=== PATIENT | female | born 1955 | race Caucasian/White ===

== ENCOUNTER 2017-05-05 10:10 | Emergency (ER) | payer BC, OTHER ==
[2017-05-05 10:16] VITALS: BP 147/89; PULSE 97; TEMP 98.5; BMI 27.3
[2017-05-05] MEDS ORDERED: ONDANSETRON *ODT* 4 MG TABLET SL ONE (10:48)
[2017-05-05] MEDS ORDERED: MECLIZINE HCL 25 MG TABLET (FP) PO ONE (10:48)
--- NOTE | 2017-05-05 10:49 | PDOC ---
History of Present Illness - General Chief Complaint: Lightheaded Stated Complaint: DIZZINESS Time Seen by Provider: 05/05/17 10:47 - History of Present Illness Initial Comments: 05/05/17 12:40 Chief complaint: Vertigo History of present illness: Patient awoke this morning with right-sided nasal congestion and mild vertigo. She has had recurrent vertigo in the past for which she takes Ativan and/or Valium. Review of systems: Admits a spinning sensation with movement of the head or change of position, that resolves almost immediately. Admits mild nausea without vomiting. No other visual or focal neurologic symptoms. Her gait is unaffected. Denies chest pain, shortness of breath, abdominal pain, vomiting or diarrhea, urinary tract symptoms, vaginal bleeding or discharge. Past medical history: No high blood pressure or diabetes. Occasional tinnitus. Otherwise healthy Social/family history reviewed and noncontributory, except that she smokes 10 cigarettes per day. Physical exam: Alert and oriented well-developed well-nourished no acute distress cooperative Afebrile, vital signs stable PERRLA 4 mm, fundi benign with sharp disc margins and good central venous pulsations, ENT: There is nasal congestion on the right, no discharge, and the ears are clear. Neck supple without bruit mass or nodes Chest clear CV regular without murmur rub or gallop Abdomen benign Neurological C2 to 12 intact. Strength full and symmetric. No focal sensory or motor deficits. Cerebellar intact. Gait unimpaired Impression: URI, labyrinthitis, probably viral Plan: Symptomatically treatment and follow-up if no improvement. Past History - Past Medical History Allergies/Adverse Reactions: Allergies Allergy/AdvReac Type Severity Reaction Status Date / Time No Known Allergies Allergy Verified 05/05/17 10:11 Home Medications: Ambulatory Orders Diazepam [Valium] 2 mg PO DAILY #5 tablet MDD 1 05/05/17 Levothyroxine Sodium [Synthroid] 150 mcg PO DAILY 05/05/17 Meclizine HCl 25 - 50 mg PO TID PRN #20 tablet 05/05/17 Ondansetron [Zofran Odt -] 4 - 8 mg SL TID PRN #10 od.tablet 05/05/17 COPD: No Psychiatric Problems: Yes (ANXIETY) Other medical history: OCULAR MIGRAINES - Suicide/Smoking/Psychosocial Hx Smoking History: Current every day smoker Have you smoked in the past 12 months: Yes Number of Cigarettes Smoked Daily: 10 Information on smoking cessation initiated: Yes 'Breaking Loose' booklet given: 05/05/17 Hx Alcohol Use: No Substance Use Type: None *Physical Exam - Vital Signs Last Vital Signs Temp Pulse Resp BP Pulse Ox 98.5 F 97 H 18 147/89 100 05/05/17 10:10 05/05/17 10:10 05/05/17 10:10 05/05/17 10:10 05/05/17 10:10 Medical Decision Making - Medical Decision Making 05/05/17 12:43 Patient much improved after the administration of meclizine and Zofran. Vertigo , nausea have resolved. Patient is able to move her head and change positions without significant discomfort. She is fully ambulatory and in no distress upon discharge to follow-up as recommended. *DC/Admit/Observation/Transfer Diagnosis at time of Disposition: Labyrinthitis of right ear - Discharge Dispostion Disposition: HOME Condition at time of disposition: Improved Admit: No - Prescriptions Prescriptions: Diazepam [Valium] 2 mg PO DAILY #5 tablet MDD 1 Meclizine HCl 25 - 50 mg PO TID PRN #20 tablet PRN Reason: vertigo or nausea Ondansetron [Zofran Odt -] 4 - 8 mg SL TID PRN #10 od.tablet PRN Reason: Nausea And/Or Vomiting - Referrals Referrals: Carmela Ramos [Primary Care Provider] - 2 Days - Patient Instructions Printed Discharge Instructions: DI for Labyrinthitis - Post Discharge Activity
[2017-05-05] MEDS ORDERED: ONDANSETRON *ODT* 4 MG TABLET ONE (10:52)
[2017-05-05] MEDS ORDERED: MECLIZINE HCL 25 MG TABLET (FP) ONE (10:52)
== END 2017-05-05 12:10 | disposition home or self-care (01) ==
LOC: FER 10:10
DX: H83.01 Labyrinthitis, right ear (principal)
CPT/HCPCS: 99282-25

== ENCOUNTER 2017-05-10 09:38 | Emergency (ER) | payer BC, OTHER ==
--- NOTE | 2017-05-10 09:42 | PDOC ---
History of Present Illness - General Chief Complaint: Lightheaded Stated Complaint: VERTIGO Time Seen by Provider: 05/10/17 09:41 - History of Present Illness Initial Comments: 05/10/17 10:37 Chief complaint: Lightheaded History of present illness: Patient being treated for mild vertigo symptoms with meclizine. Ran out of medication. Requests refill of meclizine Review of systems: No fever/chills, URI symptoms, sore throat, cough, chest pain , shortness of breath, abdominal pain, nausea, vomiting, diarrhea. Admits mild dysuria but states that this is common when she has under stress Past medical history: Otherwise healthy female, no significant medical or surgical problems Social history: Patient is in transition, recently moved here from [facility] , Apartment is unsatisfactory, no heat, still grieving from the loss of a loved one within the past year. Family history: Reviewed and noncontributory Physical exam: Patient appears somewhat anxious, tearful, and mildly depressed. She states that this is due to her recent change of residence and grieving for lost loved one. She has not sought any help. 9 afebrile, vital signs normal HEENT clear Neck supple without bruit mass or nodes Chest clear CV regular without murmur rub or gallop Abdomen benign Neurological C2 to 12 intact. Strength full and symmetric. No focal sensory or motor deficits. Gait stable and unimpaired. Cerebellum intact. Impression: Mild recurrent vertigo, probably exacerbated by anxiety and depression. No suicidal or homicidal ideations. Seems receptive to seeking help for her psychological problems Plan: Refill meclizine. Refer to Dr. Arce and consider seeking therapist, short -term counseling, possible antidepressant therapy. Fully ambulatory and in no significant distress at discharge to follow-up as recommended Past History - Past Medical History Allergies/Adverse Reactions: Allergies Allergy/AdvReac Type Severity Reaction Status Date / Time No Known Allergies Allergy Verified 05/05/17 10:11 Home Medications: Ambulatory Orders Diazepam [Valium] 2 mg PO DAILY #5 tablet MDD 1 05/05/17 Levothyroxine Sodium [Synthroid] 150 mcg PO DAILY 05/05/17 Ondansetron [Zofran Odt -] 4 - 8 mg SL TID PRN #10 od.tablet 05/05/17 Meclizine HCl 25 - 50 mg PO TID PRN #20 tablet 05/10/17 Phenazopyridine HCl [Pyridium] 100 mg PO PRN PRN 05/10/17 COPD: No Psychiatric Problems: Yes (ANXIETY) - Suicide/Smoking/Psychosocial Hx Smoking History: Current every day smoker Have you smoked in the past 12 months: Yes Number of Cigarettes Smoked Daily: 10 'Breaking Loose' booklet given: 05/05/17 Hx Alcohol Use: No Substance Use Type: None *DC/Admit/Observation/Transfer Diagnosis at time of Disposition: Vertigo - Discharge Dispostion Disposition: HOME Condition at time of disposition: Stable - Prescriptions Prescriptions: Meclizine HCl 25 - 50 mg PO TID PRN #20 tablet PRN Reason: vertigo or nausea - Referrals Referrals: Lencho Arce MD [Staff Physician] - - Patient Instructions Printed Discharge Instructions: Assess Your Smoking Habit, DI for Vertigo - Post Discharge Activity Forms/Work/School Notes: Back to Work
[2017-05-10 09:56] VITALS: BP 152/88; PULSE 97; TEMP 99; BMI 27.6
[2017-05-10] MEDS ORDERED: MECLIZINE HCL 25 MG TABLET (FP) PO ONE (09:58)
[2017-05-10] MEDS ORDERED: MECLIZINE HCL 25 MG TABLET (FP) ONE (10:01)
[2017-05-10 10:05] LABS: PH,URINE 5.5 (4.5-8); URINE APPEARANCE Clear; URINE BILIRUBIN Negative (NEGATIVE); URINE BLOOD 2+ (NEGATIVE); URINE COLOR AMBER; URINE GLUCOSE (UA) Negative (NEGATIVE); URINE KETONE Negative (NEGATIVE); URINE LEUK ESTERASE Negative (NEGATIVE); URINE NITRITE Negative (NEGATIVE); URINE PROTEIN Negative (NEGATIVE); URINE UROBILINOGEN 0.2 (0.2-1.0)
[2017-05-10 10:19] LABS: EPI CELLS MODERATE /HPF; URINE WBC 0-3 (0-5)
[2017-05-10 10:20] LABS: URINE BACTERIA FEW /hpf (NEGATIVE); YEAST MODERATE
== END 2017-05-10 10:34 | disposition home or self-care (01) ==
LOC: FER 09:38
DX: R42 Dizziness and giddiness (principal); F17.210 Nicotine dependence, cigarettes, uncomplicated; F41.9 Anxiety disorder, unspecified
CPT/HCPCS: 81003; 81015; 99282-25

== ENCOUNTER 2017-05-28 11:54 | Emergency (ER) | payer BC, OTHER ==
[2017-05-28 11:59] VITALS: BP 152/92; PULSE 89; TEMP 98; BMI 29.0
--- NOTE | 2017-05-28 12:32 | PDOC ---
History of Present Illness - General Chief Complaint: Pain, Acute Stated Complaint: left calf pain Time Seen by Provider: 05/28/17 12:23 - History of Present Illness Initial Comments: 05/28/17 14:41 Chief complaint: Leg pain History of present illness: After wearing high heeled shoes on Friday, the patient developed severe pain in the left calf and behind the left knee. This has persisted and is interfering with ambulation. She usually wears flat shoes, and had not worn heals for quite a long time until Friday. Review of systems: There is no history of DVT or pulmonary embolus, no recent travel, no estrogen use, no history of malignancy, she is normally active, but she is a smoker. There is been no chest pain, shortness of breath, abdominal pain, nausea, vomiting, diarrhea, fever, cough, sore throat, URI symptoms, urinary tract symptoms, vaginal bleeding or discharge. 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 She is usually active but does not exercise regularly Family history: Reviewed and noncontributory including early coronary artery disease, metabolic disease including diabetes, cancer, blood disorders, blood clots. Physical exam: Alert and oriented well-developed well-nourished no acute distress cheerful and cooperative Afebrile, vital signs normal HEENT clear Neck supple without bruit mass or nodes Chest clear CV regular without murmur or gallop Abdomen benign Extremities without visible or palpable trauma. Left leg: There is mild tenderness in the popliteal region. There is no deep muscle tenderness, swelling, hematoma, or cords. There is full range of motion of the knee. There is no deformity, swelling, or effusion. Calf circumference is equal bilaterally and there is no edema. Pulses are full. No sensory or motor deficits. Impression: Most likely muscle strain, possibly ruptured Ramirez cyst, highly unlikely DVT Plan: Doppler, if negative, symptomatic treatment and orthopedic follow-up as needed. Past History - Past Medical History Allergies/Adverse Reactions: Allergies Allergy/AdvReac Type Severity Reaction Status Date / Time No Known Allergies Allergy Verified 05/28/17 11:55 Home Medications: Ambulatory Orders Cyclobenzaprine HCl [Flexeril] 10 mg PO TID #15 tablet 05/28/17 Ibuprofen [Motrin -] 600 mg PO QID PRN #20 tablet 05/28/17 Levothyroxine Sodium [Levoxyl] 150 mcg PO DAILY 05/28/17 Lorazepam [Ativan] 1 mg PO DAILY 05/28/17 COPD: No Psychiatric Problems: Yes (ANXIETY) Thyroid Disease: Yes - Suicide/Smoking/Psychosocial Hx Smoking History: Current every day smoker Have you smoked in the past 12 months: Yes Number of Cigarettes Smoked Daily: 10 Information on smoking cessation initiated: Yes 'Breaking Loose' booklet given: 05/28/17 Hx Alcohol Use: Yes Drug/Substance Use Hx: No Substance Use Type: None *Physical Exam - Vital Signs Last Vital Signs Temp Pulse Resp BP Pulse Ox 98 F 89 18 152/92 100 05/28/17 11:55 05/28/17 11:55 05/28/17 11:55 05/28/17 11:55 05/28/17 11:55 Medical Decision Making - Medical Decision Making 05/28/17 14:48 Pain is staff there is negative. This coupled with negative clinical exam and minimal risk factors. Shay applied. Patient comfortable after application. No distal numbness tingling pain or weakness. Good toe motion without pain. Knee immobilizer. Crutches. Patient adequately ambulatory to follow-up with orthopedist as directed. *DC/Admit/Observation/Transfer Diagnosis at time of Disposition: Muscle strain - Discharge Dispostion Disposition: HOME Condition at time of disposition: Improved Admit: No - Prescriptions Prescriptions: Cyclobenzaprine HCl [Flexeril] 10 mg PO TID #15 tablet Ibuprofen [Motrin -] 600 mg PO QID PRN #20 tablet PRN Reason: Pain - Referrals Referrals: Bismark Leal MD [Staff Physician] - 1 week - Patient Instructions Printed Discharge Instructions: DI for Calf Muscle Strain, How to Apply an Shay Wrap, How to Use a Knee Immobilizer Additional Instructions: Rest, with leg elevated, and pillow under the knee. Use ice, or gentle ice massage, for the next 2 days, then begin heat. See plant specialist as directed for further treatment if no improvement - Post Discharge Activity Forms/Work/School Notes: Back to Work
[2017-05-28] MEDS ORDERED: KETOROLAC TROMETHAMINE 60 MG/2 ML VIAL IM ONE (13:01)
[2017-05-28] MEDS ORDERED: KETOROLAC TROMETHAMINE 60 MG/2 ML VIAL ONE (13:04)
== END 2017-05-28 14:56 | disposition home or self-care (01) ==
LOC: FER 11:54
PROC: 3E0233Z Introduction of Anti-inflammatory into Muscle, Percutaneous Approach (ICD-10-PCS; principal; 2017-05-28)
DX: S86.919A Strain of unspecified muscle(s) and tendon(s) at lower leg level, unspecified leg, initial encounter (principal); X58.XXXA Exposure to other specified factors, initial encounter; Y93.89 Activity, other specified; Y92.9 Unspecified place or not applicable; F41.9 Anxiety disorder, unspecified; F17.210 Nicotine dependence, cigarettes, uncomplicated
CPT/HCPCS: 93971-TC; 99282-25

== ENCOUNTER 2018-01-28 09:14 | Emergency (ER) | payer BC, OTHER ==
[2018-01-28 09:27] VITALS: BP 118/78; PULSE 95; TEMP 98.6; BMI 28.1
--- NOTE | 2018-01-28 09:52 | PDOC ---
History of Present Illness - General Chief Complaint: Wound Stated Complaint: wound to right hand from burn x 1 week ago Time Seen by Provider: 01/28/18 09:30 - History of Present Illness Initial Comments: 01/28/18 10:12 Chief complaint: Burn History of present illness: Worried about a burn sustained several days ago on her right hand becoming infected. Mild pain at the site. No drainage. Physical exam: Minor burn dorsum of right hand, approximately 5 mm x 1 cm, webspace of first and second digits. Healing well. No surrounding erythema, induration, or drainage. No sign of infection Impression: First-degree burn, minor, healing well, no sign of infection Plan: Update tetanus immunization. Clean and dress. Discussed wound care. Follow -up if sign of infection develops. Past History - Past Medical History Allergies/Adverse Reactions: Allergies Allergy/AdvReac Type Severity Reaction Status Date / Time No Known Allergies Allergy Verified 01/28/18 09:22 Home Medications: Ambulatory Orders Levothyroxine Sodium [Levoxyl] 150 mcg PO DAILY 05/28/17 Lorazepam [Ativan] 0.5 mg PO DAILY 05/28/17 COPD: No Psychiatric Problems: Yes (PTSD) Thyroid Disease: Yes (Hypo) - Suicide/Smoking/Psychosocial Hx Smoking History: Current every day smoker Have you smoked in the past 12 months: Yes Number of Cigarettes Smoked Daily: 10 Information on smoking cessation initiated: Yes 'Breaking Loose' booklet given: 05/28/17 Hx Alcohol Use: No Drug/Substance Use Hx: No Substance Use Type: None *Physical Exam - Vital Signs Last Vital Signs Temp Pulse Resp BP Pulse Ox 98.6 F 95 H 18 118/78 98 01/28/18 09:22 01/28/18 09:22 01/28/18 09:22 01/28/18 09:22 01/28/18 09:22 *DC/Admit/Observation/Transfer Diagnosis at time of Disposition: Burn - Discharge Dispostion Disposition: HOME Condition at time of disposition: Stable Decision to Admit order: No - Referrals - Patient Instructions Printed Discharge Instructions: DI for [place] - Post Discharge Activity
[2018-01-28] MEDS ORDERED: DIPHTH,PERTUSS(ACELL),TET 0.5 ML DISP.SYRIN IM ONE (10:14)
== END 2018-01-28 10:20 | disposition home or self-care (01) ==
LOC: FER 09:14
PROC: 3E0234Z Introduction of Serum, Toxoid and Vaccine into Muscle, Percutaneous Approach (ICD-10-PCS; principal; 2018-01-28)
DX: T23.161A Burn of first degree of back of right hand, initial encounter (principal); X58.XXXA Exposure to other specified factors, initial encounter; Y93.89 Activity, other specified; Y92.9 Unspecified place or not applicable; F43.10 Post-traumatic stress disorder, unspecified; E03.9 Hypothyroidism, unspecified; F17.210 Nicotine dependence, cigarettes, uncomplicated
CPT/HCPCS: 90715; 99282-25

== ENCOUNTER 2018-03-28 13:52 | Emergency (ER) | payer BC, OTHER ==
[2018-03-28 14:11] LABS: URINE APPEARANCE Clear; URINE BILIRUBIN Negative (NEGATIVE); URINE COLOR Yellow; URINE GLUCOSE (UA) Negative (NEGATIVE); URINE KETONE Negative (NEGATIVE); URINE LEUK ESTERASE Negative (NEGATIVE); URINE NITRITE Negative (NEGATIVE); URINE PROTEIN Negative (NEGATIVE); URINE UROBILINOGEN 0.2 (0.2-1.0)
[2018-03-28 14:19] LABS: EPI CELLS 2+ /HPF; URINE BACTERIA 1+ /hpf (NEGATIVE); URINE WBC 0-2 (0-5)
[2018-03-28] MEDS ORDERED: SODIUM CHLORIDE 1,000 ML IV STA (14:24)
[2018-03-28] MEDS ORDERED: ONDANSETRON *ODT* 4 MG TABLET SL ONE (14:30)
[2018-03-28 14:33] VITALS: BP 147/88; PULSE 71; TEMP 98.1; BMI 29.0
[2018-03-28] MEDS ORDERED: ONDANSETRON *ODT* 4 MG TABLET ONE ×2 (14:43→14:44)
--- NOTE | 2018-03-28 14:49 | PDOC ---
History of Present Illness - General Chief Complaint: Urinary Problem Stated Complaint: URINARY SYMPTOMS Time Seen by Provider: 03/28/18 13:57 History Source: Patient - History of Present Illness Initial Comments: 03/28/18 14:42 62f with pmh of hypothyroidism presents with dysuria, abdominal and back discomfort for the past 3 days. Called her pcp on who wrote her a prescription for Macrobid, of which she took a total of 4 doses. Also complains of urinary frequency. She also describes chills and a measured temperature of 99.9 orally. Took a Tylenol an hour before presentation Denies hematuria, constipation, diarrhea. Past History - Past Medical History Allergies/Adverse Reactions: Allergies Allergy/AdvReac Type Severity Reaction Status Date / Time No Known Allergies Allergy Verified 03/28/18 13:53 Home Medications: Ambulatory Orders Levothyroxine Sodium [Levoxyl] 150 mcg PO DAILY 05/28/17 Lorazepam [Ativan] 0.5 mg PO DAILY 05/28/17 Nitrofurantoin Monohyd/M-Cryst [Macrobid -] 100 mg PO BID 03/28/18 COPD: No Psychiatric Problems: Yes (PTSD) Thyroid Disease: Yes (Hypo) - Suicide/Smoking/Psychosocial Hx Smoking History: Current every day smoker Have you smoked in the past 12 months: Yes Number of Cigarettes Smoked Daily: 10 Information on smoking cessation initiated: Yes 'Breaking Loose' booklet given: 05/28/17 Hx Alcohol Use: No Drug/Substance Use Hx: No Substance Use Type: None Review of Systems - Review of Systems Able to Perform ROS?: Yes Is the patient limited [place] proficient: No Constitutional: No: Symptoms Reported HEENTM: No: Symptoms Reported Respiratory: No: Symptoms reported Cardiac (ROS): No: Symptoms Reported ABD/GI: No: Symptoms Reported : Yes: See HPI Musculoskeletal: No: Symptoms Reported Integumentary: No: Symptoms Reported Neurological: No: Symptoms reported All Other Systems: Reviewed and Negative *Physical Exam - Vital Signs Last Vital Signs Temp Pulse Resp BP Pulse Ox 98.1 F 71 20 147/88 99 03/28/18 13:53 03/28/18 13:53 03/28/18 13:53 03/28/18 13:53 03/28/18 13:53 - Physical Exam General Appearance: Yes: Nourished, Appropriately Dressed. No: Apparent Distress HEENT: positive: EOMI, SABA, Normal ENT Inspection Respiratory/Chest: positive: Lungs Clear, Normal Breath Sounds. negative: Chest Tender, Respiratory Distress Cardiovascular: positive: Regular Rhythm, Regular Rate, S1, S2 Gastrointestinal/Abdominal: positive: Normal Bowel Sounds, Flat, Soft. negative : Tender (disconfort suprapubic) Musculoskeletal: positive: Normal Inspection, CVA Tenderness (R) Moderate Sedation - Procedure Monitoring Vital Signs: Procedure Monitoring Vital Signs Temperature 98.1 F 03/28/18 13:53 Pulse Rate 71 03/28/18 13:53 Respiratory Rate 20 03/28/18 13:53 Blood Pressure 147/88 03/28/18 13:53 O2 Sat by Pulse Oximetry (%) 99 03/28/18 13:53 ED Treatment Course - LABORATORY CBC & Chemistry Diagram: 03/28/18 14:52 03/28/18 14:52 - ADDITIONAL ORDERS Additional order review: Laboratory Results 03/28/18 14:01 Urine Color Yellow Urine Appearance Clear Urine pH 6.0 Ur Specific [place] <= 1.005 L Urine Protein Negative Urine Glucose (UA) Negative Urine Ketones Negative Urine Blood 1+ H Urine Nitrite Negative Urine Bilirubin Negative Urine Urobilinogen 0.2 Ur Leukocyte Esterase Negative Urine RBC 5-10 Urine WBC 0-2 Ur Epithelial Cells 2+ Urine Bacteria 1+ Medical Decision Making - Medical Decision Making 03/28/18 14:51 Will evaluate for UTI vs stone vs pyelomnephritis. 03/28/18 15:26 All labs negative, urine negative but possible that it's because she was already treated for 2 days. 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 Come back to the ER for any new, worsening or concerning symptoms. Follow up with your primary care provider. - Post Discharge Activity
[2018-03-28 14:56] LABS: BASO % 1.7 % (0-2.0); EOS % 1.6 % (0-4.5); HEMOGLOBIN 13.9 GM/dl (10.7-15.3); LYMPH % 37.3 % (8-40); MCH 32.2 pg (25.7-33.7); MCHC 34.7 g/dl (32.0-36.0); MEAN CELL VOLUME 92.7 fl (80-96); MEAN PLT VOLUME 6.6 fl (7.5-11.1); NEUT % 55.4 % (42.8-82.8); PLATELET COUNT 377 K/MM3 (134-434); RBC 4.32 M/mm3 (3.60-5.2); RDW 12.6 % (11.6-15.6); WHITE BLOOD COUNT 7.8 K/mm3 (4.0-10.8)
--- NOTE | 2018-03-28 15:00 | PDOC ---
Attending Attestation - Resident Resident Name: Raj Mitchell - ED Attending Attestation I have performed the following: I have examined & evaluated the patient, The case was reviewed & discussed with the resident, I agree w/resident's findings & plan, Exceptions are as noted - HPI HPI: 03/28/18 14:56 62yo female with hx of [place] thyroiditis and anxiety presents to the ED c/o urinary freq. Pt states she called her PMD on c/o dysuria and urinary freq and a Rx for macrobid was sent to the pharmacy. Pt states she took a dose on night, friday BID and this AM. Pt states still with urinary freq, no dysuria. No fever. tmax 99 last night. Pt c/o nausea. No vomiting or diarrhea. States she has been feeling anxious/stressed with the holidays and has been taking her ativan. Pt denies Si/Hi. Pt denies chills. No cp/sob. No abd pain. Pt c/o R flank pain. - Physicial Exam PE: 03/28/18 14:59 Gen: aaox3, nad heart: +s1s2 reg lungs: cta b/l abd: soft, nt/nd +bs, mild R cva ttp, no rebound or guarding ext: no c/c/e skin: no rashes neuro: neuro intact, no focal deficits, ambulatory with a steady gait - Medical Decision Making 03/28/18 14:56 I, Dr. Nydia Alejo, DO, attest that this document has been prepared under my direction and personally reviewed by me in its entirety. I further attest, that it accurately reflects all work, treatment, procedures and medical decision -making performed by me. 03/28/18 15:00 a/p: 62yo female with R flank pain and urinary freq on macrobid -will send labs, ua, ucx -will change macrobid to keflex -pt with mild R cva ttp, no abd pain -pt is nontoxic in appearance -no hx of renal colic -suspect partially treated UTI -will monitor and reassess 03/28/18 17:02 labs reviewed suspect partially treated uti will switch macrobid to keflex stable for dc to home
[2018-03-28] MEDS ORDERED: CEPHALEXIN MONOHYDRATE 500 MG CAPSULE (UD) PO ONE (15:09)
[2018-03-28 15:16] LABS: ALBUMIN 3.7 g/dl (3.5-5.0); ALK PHOS 86 U/L (32-92); ANION GAP 7 MMOL/L (8-16); BILIRUBIN,TOTAL 0.2 mg/dl (0.2-1.0); BLOOD UREA NITROGEN 18 mg/dl (7-18); CALCIUM 8.7 mg/dl (8.4-10.2); CHLORIDE 103 mmol/L (98-107); CO2 25 mmol/L (22-28); GLUCOSE,RANDOM 97 mg/dl (74-106); POTASSIUM 3.9 mmol/L (3.5-5.1); SGOT/AST 20 U/L (10-42); SGPT/ALT 22 U/L (10-40); SODIUM 135 mmol/L (136-145); TOT PROT 6.8 g/dl (6.4-8.3)
[2018-03-28] MEDS ORDERED: CEPHALEXIN MONOHYDRATE 500 MG CAPSULE (UD) ONE (15:31)
== END 2018-03-28 15:36 | disposition home or self-care (01) ==
LOC: FER 13:52
DX: R30.0 Dysuria (principal); E03.9 Hypothyroidism, unspecified; F43.10 Post-traumatic stress disorder, unspecified
CPT/HCPCS: 36415; 80053; 81003; 81015; 85025; 87086; 99282-25; Q0162

== ENCOUNTER 2018-05-18 13:40 | Emergency (ER) | payer BC, OTHER ==
[2018-05-18 14:00] VITALS: BP 118/70; PULSE 88; TEMP 97.8; BMI 28.1
[2018-05-18 14:26] LABS: PH,URINE 5.5 (4.5-8); URINE APPEARANCE CLEAR; URINE BILIRUBIN NEGATIVE (NEGATIVE); URINE COLOR YELLOW; URINE GLUCOSE (UA) NEGATIVE (NEGATIVE); URINE KETONE NEGATIVE (NEGATIVE); URINE LEUK ESTERASE NEGATIVE (NEGATIVE); URINE NITRITE NEGATIVE (NEGATIVE); URINE PROTEIN NEGATIVE (NEGATIVE); URINE UROBILINOGEN 0.2 (0.2-1.0)
[2018-05-18 14:36] LABS: EPI CELLS 1+ /HPF
[2018-05-18] MEDS ORDERED: PHENAZOPYRIDINE HCL 100 MG TABLET (FP) PO ONE (15:18)
--- NOTE | 2018-05-18 15:18 | PDOC ---
History of Present Illness - General Chief Complaint: Urinary Problem Stated Complaint: URINARY SX Time Seen by Provider: 05/18/18 13:43 - History of Present Illness Initial Comments: 05/18/18 15:22 The patient is a 62 year old female, with a significant past medical history of hypothyroidism, PTSD, and anxiety (on ativan) who presents to the emergency department with a "bladder infection." Patient reports suprapubic pain at 2am this morning accompanied with frequency, urgency, and sensation that her "urethera is spasming." Pt states she also feels a dull pressure radiating up to her R flank. The patient notes she was seen in the ED in February 2018 for similar symptoms and was prescribed cephalexin which made her feel "terrible." Pt also reports similar sxs a few weeks ago which she took left over macrobid ( 1 pill) with resolution. No treatments tried. The patient denies chest pain, shortness of breath, headache, numbness, weakness and dizziness. The patient denies fever, chills, vomit, diarrhea and constipation. Allergies: cephalexin Past surgical history: None reported Social history: None reported PCP: Dr. Maricarmen Milian Past History - Past Medical History Allergies/Adverse Reactions: Allergies Allergy/AdvReac Type Severity Reaction Status Date / Time cephalexin [From Keflex] AdvReac nightmares Verified 05/18/18 13:43 Home Medications: Ambulatory Orders Levothyroxine Sodium [Levoxyl] 150 mcg PO DAILY 05/28/17 Lorazepam [Ativan] 0.5 mg PO DAILY 05/28/17 Acetaminophen [Tylenol -] 1,000 mg PO ONCE 05/18/18 Acetaminophen/Caffeine/Butalb [Fioricet -] 1 tab PO Q4H PRN 05/18/18 COPD: No Psychiatric Problems: Yes (anxiety) Thyroid Disease: Yes (Hypothyroid) - Suicide/Smoking/Psychosocial Hx Smoking History: Current every day smoker Have you smoked in the past 12 months: Yes Number of Cigarettes Smoked Daily: 10 Information on smoking cessation initiated: Yes 'Breaking Loose' booklet given: 03/28/18 Hx Alcohol Use: No Drug/Substance Use Hx: No Substance Use Type: None Review of Systems - Review of Systems Comments:: 05/18/18 15:27 GENERAL/CONSTITUTIONAL: No fever or chills. No weakness. HEAD, EYES, EARS, NOSE AND THROAT: No change in vision. No ear pain or discharge. No sore throat. GASTROINTESTINAL: No nausea, vomiting, diarrhea or constipation. GENITOURINARY: (+) dysuria,(+) frequency, (+) urgency, (+) change in urination. CARDIOVASCULAR: No chest pain or shortness of breath. RESPIRATORY: No cough, wheezing, or hemoptysis. MUSCULOSKELETAL: (+) R flank pain. No joint or muscle swelling. No neck pain. SKIN: No rash NEUROLOGIC: No headache, vertigo, loss of consciousness, or change in strength/ sensation. ENDOCRINE: No increased thirst. No abnormal weight change. HEMATOLOGIC/LYMPHATIC: No anemia, easy bleeding, or history of blood clots. ALLERGIC/IMMUNOLOGIC: No hives or skin allergy. *Physical Exam - Vital Signs Last Vital Signs Temp Pulse Resp BP Pulse Ox 97.8 F 88 16 118/70 100 05/18/18 13:40 05/18/18 13:40 05/18/18 13:40 05/18/18 13:40 05/18/18 13:40 - Physical Exam Comments: 05/18/18 15:28 GENERAL: Awake, alert, and fully oriented, in no acute distress. Non toxic, comfortable appearing. EYES: PERRLA, EOMI, sclera anicteric, conjunctiva clear ENT: Moist mucosa LUNGS: Breath sounds equal, clear to auscultation bilaterally. No wheezes, and no crackles HEART: Regular rate and rhythm, normal S1 and S2, no murmurs, rubs or gallops ABDOMEN: Soft, nontender, normoactive bowel sounds. No guarding, no rebound. No masses EXTREMITIES: Normal range of motion, no edema. No cords, erythema, or tenderness. WWP. BACK: No midline spinal tenderness in cervical/thoracic/lumbar region. +mild R CVAT NEUROLOGICAL: Normal speech, cranial nerves intact, equal strength and sensation b/l SKIN: Warm, Dry, normal turgor, no rashes or lesions noted. Moderate Sedation - Procedure Monitoring Vital Signs: Procedure Monitoring Vital Signs Temperature 97.8 F 05/18/18 13:40 Pulse Rate 88 05/18/18 13:40 Respiratory Rate 16 05/18/18 13:40 Blood Pressure 118/70 05/18/18 13:40 O2 Sat by Pulse Oximetry (%) 100 05/18/18 13:40 ED Treatment Course - ADDITIONAL ORDERS Additional order review: Laboratory Results 05/18/18 13:55 Urine Color Yellow Urine Appearance Clear Urine pH 5.5 Ur Specific [place] 1.015 Urine Protein Negative Urine Glucose (UA) Negative Urine Ketones Negative Urine Blood 2+ H Urine Nitrite Negative Urine Bilirubin Negative Urine Urobilinogen 0.2 Ur Leukocyte Esterase Negative Urine RBC 5-10 Ur Epithelial Cells 1+ Medical Decision Making - Medical Decision Making 05/18/18 15:31 62yo F presents to the ED with suprapubic spasmodic pain, frequency, urgency that she states feels like her previous bladder infection. Pt also reports dull pain radiating up R flank and has mild R CVAT on exam. Vitals wnl. UA with 2+ blood but no wbcs or LE reported. Clinically, pt has symptoms of uncomplicated pyelonephritis with bladder spasm. As such, will treat with pyridum and bactrim. Pt non toxic, well appearing otherwise. She will f/u with her PMD this week I discussed the physical exam findings, ancillary test results and final diagnoses with the patient. I answered all of the patient's questions. The patient was satisfied with the care received and felt comfortable with the discharge plan and treatment plan. The patient will call their primary care physician within 24 hours to arrange follow-up and will return to the Emergency Department with any new, persistent or worsening symptoms. *DC/Admit/Observation/Transfer Diagnosis at time of Disposition: Dysuria, Painful bladder spasm, Pyelonephritis - Discharge Dispostion Disposition: HOME Condition at time of disposition: Stable Decision to Admit order: No - Referrals Referrals: Maricarmen Milian [Primary Care Provider] - - Patient Instructions Printed Discharge Instructions: DI for Kidney Infection, DI for Acute Cystitis - Post Discharge Activity
[2018-05-18] MEDS ORDERED: SULFAMETHOXAZOLE/TRIMETHOPRIM 800MG/160MG D.S. TABLET PO ONE (15:21)
[2018-05-18] MEDS ORDERED: SULFAMETHOXAZOLE/TRIMETHOPRIM 800MG/160MG D.S. TABLET ONE (15:21)
[2018-05-18] MEDS ORDERED: PHENAZOPYRIDINE HCL 100 MG TABLET (FP) ONE (15:22)
== END 2018-05-18 16:05 | disposition home or self-care (01) ==
LOC: FER 13:40
DX: R30.0 Dysuria (principal); N12 Tubulo-interstitial nephritis, not specified as acute or chronic; R25.2 Cramp and spasm
CPT/HCPCS: 81003; 81015; 87086; 99282-25

== ENCOUNTER 2018-06-14 07:34 | Emergency (ER) | payer BC, OTHER ==
--- NOTE | 2018-06-14 07:41 | PDOC ---
History of Present Illness - General Chief Complaint: Urinary Problem Stated Complaint: UTI Time Seen by Provider: 06/14/18 07:36 History Source: Patient Exam Limitations: No Limitations - History of Present Illness Initial Comments: 06/14/18 07:59 HPI 62 YOF with PMH Hypothyroidism, UTIs, PTSD, and anxiety (on ativan) who presents to the emergency department with a "bladder infection since yesterday , a/w nausea, lower abdominal discomfort and lower back pain. Pt endorses dysuria, urgency and frequency, and feels "urethral spasms" when she urinates. Has had h/o UTIs, treated with bactrim (pt has side effects from keflex). Recently had her tooth pulled several days ago, but not put on abx. Denies fever, chills, dizziness, weakness, V, D, leg swelling, No sick contacts or travel. No new changes in medications. Allergies: keflex Past Medical History: hypothyroid Social history: Lives alone No smoking. No alcohol. No illicit drugs. Surgical history: noncontributory PMD: Dr Maricarmen LEUNG Constitutional: no fevers or chills. HEENT: no headache or dizziness. CVS: no cp or syncope. Resp: no sob. Gastrointestinal: +abdominal pain, +nausea. No vomiting, diarrhea Genitourinary: +dysuria, urgency/frequency. no hematuria. MUSCULOSKELETAL: No joint pain and swelling. +lower back pain. SKIN: no redness or skin changes, no discharge, no rash. No wounds. Hematologic: no easy bruising/bleeding. NEUROLOGIC: No headache, dizziness, LOC or altered mental status. Allergic/Immunologic: +abx allergy All other systems reviewed and negative, or as documented in HPI. PE: General: Well appearing, awake and alert, NAD. HEENT: NCAT, PERRL, EOMI, clear conjunctiva, anicteric, moist mucus membranes, clear oropharynx, no oral lesions.. Neck: neck supple, FROM Resp: normal and even respirations, no respiratory distress CVS: 2+ peripheral pulses throughout, no peripheral edema Abdomen: soft, obese abdomen, suprapubic tenderness. No rebound or guarding. No CVAT. Back: nontender, normal inspection and ROM MSK: no edema, FONTANEZ x4, ROM intact. Neuro: alert Skin: warm and well perfused, cap refill <2 sec, normal color 06/14/18 08:00 06/14/18 08:03 Past History - Past Medical History Allergies/Adverse Reactions: Allergies Allergy/AdvReac Type Severity Reaction Status Date / Time cephalexin [From Keflex] AdvReac nightmares Verified 06/14/18 07:35 Home Medications: Ambulatory Orders Levothyroxine Sodium [Levoxyl] 150 mcg PO DAILY 05/28/17 Lorazepam [Ativan] 0.5 mg PO DAILY 05/28/17 Acetaminophen [Tylenol -] 1,000 mg PO ONCE 05/18/18 Acetaminophen/Caffeine/Butalb [Fioricet -] 1 tab PO Q4H PRN 05/18/18 Phenazopyridine HCl [Pyridium -] 100 mg PO BID #6 tablet 06/14/18 Sulfamethoxazole/Trimethoprim [Bactrim Ds Tablet] 1 each PO BID 7 Days #14 tablet 06/14/18 COPD: No Psychiatric Problems: Yes (anxiety) Thyroid Disease: Yes (Hypothyroid) - Suicide/Smoking/Psychosocial Hx Smoking History: Current every day smoker Have you smoked in the past 12 months: Yes Number of Cigarettes Smoked Daily: 10 'Breaking Loose' booklet given: 05/18/18 Hx Alcohol Use: No Drug/Substance Use Hx: No Substance Use Type: None Medical Decision Making - Medical Decision Making 06/14/18 07:59 hpi as documented VS wnl, reassuring. no fever, nontoxic appearing most likely UTI vs pyelonephritis. clinical sx correlating with infection, with urinary sx, no blood. abdomen soft, benign exam, so doubt intra abdominal process UA_with blood, trace protein, neg leuk esterase. no prior cultures to compare. will treat as clinical UTI and f/u results, abx and meds as dispenses for symptom and urine treatment. pyridium and PO bactrim (worked for pt previouslyy) has PMD appt with Dr Milian tomorrow. Pt informed of my clinical impression, treatment recommendations and disposition plan. All questions answered to patient's satisfaction and expressed understanding and comfort with this. Reasons for returning to the ED sooner discussed with the patient otherwise, follow up with primary care physician. At the time of discharge, the patient is alert, clinically improved, tolerating po and verbalizes understanding of instructions. Patient does not suffer from an acute life-threatening medical condition at this time she is safe for outpatient follow-up. 06/14/18 08:29 *DC/Admit/Observation/Transfer Diagnosis at time of Disposition: UTI (urinary tract infection) Qualifiers: Urinary tract infection type: site unspecified Hematuria presence: with hematuria Qualified Code(s): N39.0 - Urinary tract infection, site not specified ; R31.9 - Hematuria, unspecified - Discharge Dispostion Disposition: HOME Condition at time of disposition: Improved Decision to Admit order: No - Prescriptions Prescriptions: Phenazopyridine HCl [Pyridium -] 100 mg PO BID #6 tablet Sulfamethoxazole/Trimethoprim [Bactrim Ds Tablet] 1 each PO BID 7 Days #14 tablet - Referrals Referrals: Maricarmen Milian [Non Staff, Medical] - - Patient Instructions Printed Discharge Instructions: DI for Urinary Tract Infection (UTI) Additional Instructions: you most likely have a urinary tract infection based off your symptoms. take your antibiotic twice a day for 1 week you can also take pyridium for the spasms and burning twice a day x 3 days maximum. it will turn your urine orange follow up with primary if worsening symptoms of pain despite medications after 24-48 hours, fevers, chills, worsening abdominal pain, vomiting, dehydration, return sooner for reevaluation. follow up on the urine cultures - Post Discharge Activity
[2018-06-14 07:46] VITALS: BP 124/77; PULSE 89; TEMP 98.3; BMI 28.1
[2018-06-14] MEDS ORDERED: ACETAMINOPHEN 325 MG TABLET (FP) PO ONE (07:56)
[2018-06-14] MEDS ORDERED: PHENAZOPYRIDINE HCL 100 MG TABLET (FP) PO ONE (07:56)
[2018-06-14 08:18] LABS: URINE APPEARANCE CLEAR; URINE BILIRUBIN NEGATIVE (NEGATIVE); URINE COLOR YELLOW; URINE GLUCOSE (UA) NEGATIVE (NEGATIVE); URINE KETONE TRACE (NEGATIVE)
[2018-06-14 08:19] LABS: PH,URINE 5.5 (4.5-8); URINE LEUK ESTERASE NEGATIVE (NEGATIVE); URINE NITRITE NEGATIVE (NEGATIVE); URINE PROTEIN TRACE (NEGATIVE); URINE UROBILINOGEN 0.2 (0.2-1.0)
[2018-06-14] MEDS ORDERED: SULFAMETHOXAZOLE/TRIMETHOPRIM 800MG/160MG D.S. TABLET ONE ×2 (08:43→08:51)
[2018-06-14] MEDS ORDERED: ACETAMINOPHEN 325 MG TABLET (FP) ONE (08:44)
[2018-06-14] MEDS ORDERED: SULFAMETHOXAZOLE/TRIMETHOPRIM 800MG/160MG D.S. TABLET PO ONE (08:44)
[2018-06-14] MEDS ORDERED: PHENAZOPYRIDINE HCL 100 MG TABLET (FP) ONE (08:44)
[2018-06-14 09:57] LABS: EPI CELLS FEW /HPF; URINE WBC 0-2 (0-5)
== END 2018-06-14 08:52 | disposition home or self-care (01) ==
LOC: FER 07:34
DX: N39.0 Urinary tract infection, site not specified (principal); R31.9 Hematuria, unspecified; F17.210 Nicotine dependence, cigarettes, uncomplicated; E03.9 Hypothyroidism, unspecified; F41.9 Anxiety disorder, unspecified
CPT/HCPCS: 81003; 81015; 87086; 99282-25

== ENCOUNTER 2018-09-24 14:58 | Emergency (ER) | payer BC, OTHER ==
[2018-09-24 15:05] VITALS: BMI 29.7
[2018-09-24 15:23] VITALS: BP 128/77; PULSE 80; TEMP 99.3
[2018-09-24] MEDS ORDERED: traMADol HCL 50 MG TABLET PO ONE (15:47)
[2018-09-24] MEDS ORDERED: traMADol HCL 50 MG TABLET ONE (15:50)
[2018-09-24] MEDS ORDERED: NAPROXEN 500 MG TABLET (FP) PO ONE (16:13)
[2018-09-24] MEDS ORDERED: NAPROXEN 500 MG TABLET (FP) ONE (16:18)
--- NOTE | 2018-09-24 16:38 | PDOC ---
Documentation entered by Camilo Valentine SCRIBE, acting as scribe for Wm Bright MD. Wm Bright MD: This documentation has been prepared by the Serge rodriguez Collisia, SCRIBE, under my direction and personally reviewed by me in its entirety. I confirm that the documentation accurately reflects all work, treatment, procedures, and medical decision making performed by me. History of Present Illness - General Chief Complaint: Pain, Acute Stated Complaint: RIGHT RIB PAIN S/P COUGHING History Source: Patient Exam Limitations: No Limitations - History of Present Illness Initial Comments: 09/24/18 16:11 The patient is a 62 year old female with a significant past medical history of hypothyroidism, PTSD and anxiety who presents to the emergency department with worsening right chest pain for 1 week. The patient describes her chest pain as more localized to her right rib. She reports that prior to her onset of chest pain he had been experiencing some shortness of breath and wheezing with associated productive cough with phlegm. The patient states that she subsequently began to experience some pain with her cough that had been constant. She states that she was seen by her doctor regarding her symptoms by which she was given an asthma pump and flonase. The patient states that she had stopped smoking at the time as well. She states that after getting some relief from her medications she stopped taking them and began smoking again. She endorses reproducible chest pain with moving her shoulders and arms. She denies any sick contacts or recent travel. She denies any episode like this in the past. The patient denies any other symptoms or complaints. She states that she is concerned for possible bruising on her ribs secondary to cough severity. Past History - Past Medical History Allergies/Adverse Reactions: Allergies Allergy/AdvReac Type Severity Reaction Status Date / Time cephalexin [From Keflex] AdvReac nightmares Verified 09/24/18 14:59 Home Medications: Ambulatory Orders Levothyroxine Sodium [Levoxyl] 150 mcg PO DAILY 05/28/17 Lorazepam [Ativan] 0.5 mg PO DAILY 05/28/17 Naproxen 500 mg PO BID PRN #20 tablet 09/24/18 Tramadol HCl 50 mg PO Q6H PRN #20 tablet MDD 4 09/24/18 COPD: No Psychiatric Problems: Yes (anxiety) Thyroid Disease: Yes (Hypothyroid) - Suicide/Smoking/Psychosocial Hx Smoking History: Current every day smoker Have you smoked in the past 12 months: Yes Number of Cigarettes Smoked Daily: 10 'Breaking Loose' booklet given: 06/14/18 Hx Alcohol Use: No Drug/Substance Use Hx: No Substance Use Type: None Review of Systems - Review of Systems Able to Perform ROS?: Yes Comments:: 09/24/18 16:12 GENERAL/CONSTITUTIONAL: No fever or chills. No weakness. HEAD, EYES, EARS, NOSE AND THROAT: No change in vision. No ear pain or discharge. No sore throat. CARDIOVASCULAR: (+)chest pain, shortness of breath. RESPIRATORY: (+)cough, wheezing. No hemoptysis. GASTROINTESTINAL: No nausea, vomiting, diarrhea or constipation. GENITOURINARY: No dysuria, frequency, or change in urination. MUSCULOSKELETAL: No joint or muscle swelling or pain. No neck or back pain. SKIN: No rash NEUROLOGIC: No headache, vertigo, loss of consciousness, or change in strength/ sensation. ENDOCRINE: No increased thirst. No abnormal weight change. HEMATOLOGIC/LYMPHATIC: No anemia, easy bleeding, or history of blood clots. ALLERGIC/IMMUNOLOGIC: No hives or skin allergy. Medical Decision Making - Medical Decision Making 09/24/18 16:38 A portion of this note was documented by scribe services under my direction. I have reviewed the details of the note, within reason, and agree with the documentation with the following case summary and management plan written by me. Patient treated in the ED. Nursing notes are reviewed and incorporated into the medical decision-making. Vital signs reviewed. Peripheral IV access obtained by the nurse, laboratory studies are drawn and sent, reviewed and interpreted by myself. Vital Signs Temp Pulse Resp BP Pulse Ox 99.3 F 80 17 128/77 99 09/24/18 14:58 09/24/18 14:58 09/24/18 14:58 09/24/18 14:58 09/24/18 14:58 62-year-old female patient with heavy smoking history presents with right sternal chest pain. Patient reports that she's been trying to cut down on cigarettes. She's been smoking for several decades. She is noted that seen on ALLERGIES has provoked her coughing. Approximately one half weeks ago, the patient was taking Flonase and anti-ALLERGY medications as prescribed by her primary care doctor. She reported her coughing improved but when she stopped taking the medications, her symptoms return. He should had a spastic offing fit which had led to right chest spasm and pain. She denies shortness of breath, fevers, chills. Patient restarted her albuterol and Flonase and reports improvement in cough. However, the pain has persisted. Patient had came into the ER for further evaluation. I had reviewed the chest x-ray with radiologist, Dr. Tao Liriano. There is no known fractures or pneumonia at this time. However, there is a questionable right-sided nodule. I had expressed this to the patient in regards to his nodule. I reported that this could potentially be a false positive but given her circumstances of the smoking history, this will need further outpatient workup potential including CAT scan the chest. I advised that any type to nodules could potentially be malignancy. Patient states that she will follow-up with her doctor tomorrow regards these findings. Patient was given naproxen and tramadol with improvement of symptoms. We'll give her prescription of these medications and supportive care and follow-up with her doctor. I discussed the physical exam findings, ancillary test results and final diagnoses with the patient. I answered all of the patient's questions. The patient was satisfied with the care received and felt comfortable with the discharge plan and treatment plan. The patient will call their primary care physician within 24 hours to arrange follow-up and will return to the Emergency Department with any new, persistant or worsening symptoms. *DC/Admit/Observation/Transfer Diagnosis at time of Disposition: Costochondritis - Discharge Dispostion Disposition: HOME Condition at time of disposition: Stable Decision to Admit order: No - Prescriptions Prescriptions: Naproxen 500 mg PO BID PRN #20 tablet PRN Reason: Pain Tramadol HCl 50 mg PO Q6H PRN #20 tablet MDD 4 PRN Reason: Severe Pain - Referrals Referrals: Maricarmen Milian [Primary Care Provider] - - Patient Instructions Printed Discharge Instructions: DI for Costochondritis Additional Instructions: Your chest x-ray demonstrated no pneumonia or fractures of your ribs. However, there is a potentially questionable right-sided nodule in your lung. Given year smoking history, it is important that you speak with her doctor regards to these findings. Please bring this copy of the paperwork to your doctor tomorrow. Your doctor may potentially request a CAT scan of your chest as an outpatient or potential referral to integration manager. During this time, regards to chest pain, this is likely inflammation of the chest from coughing. Please take 500 mg of naproxen every 12 hours if her pain. For additional pain relief, take one tablet of tramadol every 6 hours as needed. This medication may make you drowsy so please do not drink alcohol or drive on this medication. If you have uncontrollable chest pain, please call your doctor or return to the ER. - Post Discharge Activity
== END 2018-09-24 16:49 | disposition home or self-care (01) ==
LOC: FER 14:58
DX: M94.0 Chondrocostal junction syndrome [Tietze] (principal); E03.9 Hypothyroidism, unspecified; F43.10 Post-traumatic stress disorder, unspecified; F41.9 Anxiety disorder, unspecified; Z88.1 Allergy status to other antibiotic agents
CPT/HCPCS: 71046-TC-FY; 99282-25

== ENCOUNTER 2019-01-07 08:54 | Emergency (ER) | payer BC, OTHER ==
--- NOTE | 2019-01-07 08:59 | PDOC ---
Attending Attestation - Resident Resident Name: Prosper Scanlon - ED Attending Attestation I have performed the following: I have examined & evaluated the patient, The case was reviewed & discussed with the resident, I agree w/resident's findings & plan, Exceptions are as noted - HPI HPI: 01/07/19 11:18 Dysuria, frequency, and urgency for several days. History of UTIs in the past, but no documented positive cultures. Symptoms improved with a course of Bactrim. Has not had urological evaluation. Denies symptoms of vaginitis including itching, dryness, irritation, or lesions , however, does admit a small amount of whitish vaginal discharge. She is taking Pyridium for her symptoms OTC. - Physicial Exam PE: 01/07/19 11:20 Physical exam: Afebrile, vital signs normal Alert and oriented no acute distress cooperative Abdomen soft nontender without mass organomegaly. Suggestion of right CVAT, but this is not reproducible. Urinalysis: Positive for nitrites, but negative for leukocyte esterase, red or white blood cells. - Medical Decision Making 01/07/19 11:21 Assessment: Possible recurrent UTI, but other etiologies were discussed with the patient, including atrophic vaginitis, other types of infectious vaginitis, and cystitis including interstitial cystitis. Plan: Antibiotics pending culture results. To check culture in 2 days. If negative, to stop antibiotics and arrange follow-up with stove refinisher and urologist. Return to ER if there are fever/chills or other constitutional symptoms. Discharge fully ambulatory and in no significant pain or other distress to follow-up as directed
[2019-01-07 09:00] VITALS: BP 120/71; PULSE 81; TEMP 98.5; BMI 29.7
[2019-01-07 10:00] LABS: EPITHELIAL CELLS FEW /hpf
--- NOTE | 2019-01-07 10:15 | PDOC ---
History of Present Illness - General Chief Complaint: Urinary Problem Stated Complaint: FREQ URINATION Time Seen by Provider: 01/07/19 08:57 Past History - Past Medical History Allergies/Adverse Reactions: Allergies Allergy/AdvReac Type Severity Reaction Status Date / Time cephalexin [From Keflex] AdvReac nightmares Verified 01/07/19 08:58 Home Medications: Ambulatory Orders Levothyroxine Sodium [Levoxyl] 150 mcg PO DAILY 05/28/17 Lorazepam [Ativan] 1 mg PO DAILY 05/28/17 Sulfamethoxazole/Trimethoprim [Bactrim Ds -] 1 tab PO BID #14 tablet 01/07/19 COPD: No Psychiatric Problems: Yes (anxiety) Thyroid Disease: Yes (Hypothyroid) - Psycho Social/Smoking Cessation Hx Smoking History: Current every day smoker Have you smoked in the past 12 months: Yes Number of Cigarettes Smoked Daily: 5 Information on smoking cessation initiated: Yes 'Breaking Loose' booklet given: 09/24/18 Hx Alcohol Use: No Drug/Substance Use Hx: No Substance Use Type: None *Physical Exam - Vital Signs Last Vital Signs Temp Pulse Resp BP Pulse Ox 98.5 F 81 15 120/71 100 01/07/19 08:55 01/07/19 08:55 01/07/19 08:55 01/07/19 08:55 01/07/19 08:55 ED Treatment Course - ADDITIONAL ORDERS Additional order review: Laboratory Results 01/07/19 09:08 Urine Color [place] Urine Appearance Slightly Urine pH 5.0 Urine Protein Negative Urine Glucose (UA) Trace Urine Ketones Negative Urine Blood Trace-intact Urine Nitrite Positive H Urine Bilirubin Negative Urine Urobilinogen 0.2 Ur Leukocyte Esterase Negative Urine RBC 0-2 Urine WBC 0-2 Ur Transition Epith Cell Few Urine Bacteria Few Medical Decision Making - Medical Decision Making 01/07/19 12:33 HPI: 63F PMH COPD presenting with 1 week of urinary frequency and urgency with associated low back pain and suprapubic discomfort. Was seen at PCP 01/01/19, according to patient UA was neg for infection. Endorses discharge in panties that patient cannot characterize and mild occasional dysuria. Patient is requesting abx. NKDA ROS: CONSTITUTIONAL: endorse chills this AM RESP: Denies SOB CARD: Denies chest pain, palpitations GI: Endorses mild nausea. Denies V / D, abdominal pain, bloody stool, inability to tolerate PO : see HPI NEURO: Denies numbness, tingling, weakness PE: GEN: Well appearing, NAD, comfortable. AAOx3 HEENT: NC/AT. No facial asymmetry. Normal voice. Supple neck w/ FROM. CV: S1/S2, RRR, no m/r/g LUNG: CTAB, no wheezes, crackles, rales, rhonchi. GI: mild CVAT w/ light testing. soft, ndnt, +BS. SKIN: warm, dry, normal turgor PSYCH: anxious, cooperative NEURO: Moving all extremities well. Ambulates well. MDM: 63F presenting with urinary frequency, urgency, low back pain, and suprapubic discomfort. DDx - UTI, vaginal atrophy, cystitis - multiple UA and UC in the past; no growth on prior UCs - UA, UC - UA + nitrite, neg LE - pending UC dc home pcp and uro f/u bactrim ds, d/c if UC neg.; callback requested Discharge - Discharge Information Problems reviewed: Yes Clinical Impression/Diagnosis: Urinary frequency Condition: Stable - Admission No - Additional Discharge Information Prescriptions: Sulfamethoxazole/Trimethoprim [Bactrim Ds -] 1 tab PO BID #14 tablet - Follow up/Referral Referrals: Raúl Blake MD [Staff Physician] - CallBack Reminder: Please call patient back - Patient Discharge Instructions Additional Instructions: You were seen and assessed in the Emergency Department. As discussed, we suggest you follow up with your primary care doctor and a urologist with your concerns. We have provided a referral to a urologist for you, see attached papers. See your primary care doctor in the next 7 days regarding this ED visit. See a urologist within the 14 days regarding your concerns. Please drink plenty of fluids. We have sent a prescription to your pharmacy, please take as directed. PLEASE CALL MARYBETH FANG at on 01/09/2019 to follow up with your PENDING lab results. These results may change the need for your prescription. IMMEDIATELY return to the ED if you experience any of the following: - high fevers - worsening of your symptoms - ANYTHING that concerns you - Post Discharge Activity
[2019-01-07] MEDS ORDERED: SULFAMETHOXAZOLE/TRIMETHOPRIM 800MG/160MG D.S. TABLET PO ONE (10:25)
[2019-01-07] MEDS ORDERED: SULFAMETHOXAZOLE/TRIMETHOPRIM 800MG/160MG D.S. TABLET ONE (10:35)
== END 2019-01-07 10:39 | disposition home or self-care (01) ==
LOC: FER 08:54
DX: R35.0 Frequency of micturition (principal); R30.0 Dysuria; R39.15 Urgency of urination; F17.210 Nicotine dependence, cigarettes, uncomplicated; E03.9 Hypothyroidism, unspecified; F41.9 Anxiety disorder, unspecified; J44.9 Chronic obstructive pulmonary disease, unspecified; Z88.1 Allergy status to other antibiotic agents
CPT/HCPCS: 81003; 81015; 87086; 99282-25

== ENCOUNTER 2019-12-11 09:00 | Emergency (ER) | payer OTHER ==
[2019-12-11 09:10] VITALS: BP 144/80; PULSE 86; TEMP 97.9; BMI 29.7
--- NOTE | 2019-12-11 09:37 | PDOC ---
History of Present Illness - General Chief Complaint: Lightheaded Stated Complaint: DIZZINESS Time Seen by Provider: 12/11/19 09:16 - History of Present Illness Initial Comments: 64 YOF h/o hypothyroidism and migraines presents for sinus congestion, dizziness and pain in the back of her head/ behind her ear for 4 days duration. She mentions that she has had an episode of similar sx in the past, was diagnosed with labrynthitis and given meclezine which improved her sx. Patient reports that she has taken ativan for her current sx but this has not helped. She also reports intermittent bouts of diarrhea since the onset of her sx. She denies fever, chills, cough, recent sick contacts or travel, CP, SOB, nausea or vomiting. 12/11/19 09:37 Past History - Medical History Allergies/Adverse Reactions: Allergies Allergy/AdvReac Type Severity Reaction Status Date / Time cephalexin [From Keflex] AdvReac nightmares Verified 12/11/19 09:02 Home Medications: Ambulatory Orders Levothyroxine Sodium [Levoxyl] 150 mcg PO DAILY 05/28/17 Lorazepam [Ativan] 0.5 mg PO BID 05/28/17 Albuterol Sulfate Inhaler - [Ventolin Hfa Inhaler -] 1 puff IH Q4H PRN 12/11/19 Meclizine HCl 25 mg PO TID #14 tablet 12/11/19 COPD: Yes Psychiatric Problems: Yes (anxiety) Thyroid Disease: Yes (Hypothyroid) - Reproductive History Is Patient Now?: No - Psycho-Social/Smoking History Smoking History: Current every day smoker Have you smoked in the past 12 months: Yes Number of Cigarettes Smoked Daily: 3 Information on smoking cessation initiated: Yes 'Breaking Loose' booklet given: 09/24/18 - Substance Abuse Hx (Audit-C & DAST Scrn) How often the patient has a drink containing alcohol: Never Score: In Men: 4 or > Positive; In Women: 3 or > Positive: 0 Screen Result (Pos requires Nsg. Audit-10AR): Negative In the last yr the pt used illegal drug/Rx for NonMed reason: No Score: Yes response is considered Positive: 0 Screen Result (Positive result requires Nsg. DAST-10): Negative Review of Systems - Review of Systems Constitutional: Yes: See HPI HEENTM: Yes: See HPI Respiratory: Yes: See HPI Cardiac (ROS): Yes: See HPI ABD/GI: Yes: See HPI : Yes: See HPI Musculoskeletal: Yes: See HPI Integumentary: Yes: See HPI Neurological: Yes: See HPI Endocrine: Yes: See HPI Hematologic/Lymphatic: Yes: See HPI *Physical Exam - Vital Signs Last Vital Signs Temp Pulse Resp BP Pulse Ox 97.9 F 86 18 144/80 99 12/11/19 09:00 12/11/19 09:00 12/11/19 09:00 12/11/19 09:00 12/11/19 09:00 - Physical Exam General Appearance: Yes: Nourished, Appropriately Dressed HEENT: positive: EOMI, SABA, Normal ENT Inspection, Normal Voice, Symmetrical, TMs Normal, Pharynx Normal Neck: positive: Trachea midline, Normal Thyroid Respiratory/Chest: positive: Lungs Clear, Normal Breath Sounds Cardiovascular: positive: Regular Rhythm, Regular Rate, S1, S2 Gastrointestinal/Abdominal: positive: Normal Bowel Sounds, Flat, Soft Neurologic: positive: flight steward II-XII NML intact, Fully Oriented, Alert, Normal Mood/Affect, Normal Response, Motor Strength 5/5 Medical Decision Making - Medical Decision Making 64 YOF h/o hypothyroidism with dizziness and sinus congestion. - vitals wnl - exam unremarkable - h/o labrynthitis which feels similar to current sx, treated previously with meclezine and decongestant - given h/o smoking and obesity + dizziness will do head CT - tx sx with meclezine and affrin 12/11/19 11:31 - CT head shows no acute changes - will dc patient to home with prescription for meclezine Discharge - Discharge Information Problems reviewed: Yes Clinical Impression/Diagnosis: Lightheadedness Sinusitis Qualifiers: Sinusitis location: frontal Chronicity: acute Recurrence: non-recurrent Qualified Code(s): J01.10 - Acute frontal sinusitis, unspecified Condition: Stable - Admission No - Additional Discharge Information Prescriptions: Meclizine HCl 25 mg PO TID #14 tablet - Follow up/Referral Referrals: Brad Fung MD [Primary Care Provider] - - Patient Discharge Instructions Patient Printed Discharge Instructions: Sinusitis (Alternative Therapy) Additional Instructions: Meclizine as prescribed. [id number] Afrin x2 days as directed on package. Use a Karol pot 3-4 times a day. Drink plenty fluids. Follow-up with your d connie in 1 to 2 days. Return to the emergency department for any severe worsening symptoms or for any concerns. - Post Discharge Activity
[2019-12-11] MEDS ORDERED: OXYMETAZOLINE 0.05% NASAL SOLUTION 15 ML BOTTLE NS ONE ×2 (09:47→09:52)
[2019-12-11] MEDS ORDERED: MECLIZINE HCL 25 MG TABLET (FP) PO ONE (09:47)
[2019-12-11] MEDS ORDERED: MECLIZINE HCL 25 MG TABLET (FP) ONE (09:52)
--- NOTE | 2019-12-11 10:45 | PDOC ---
Attending Attestation - Resident Resident Name: Harrison Fonseca - ED Attending Attestation I have performed the following: I have examined & evaluated the patient, The case was reviewed & discussed with the resident, I agree w/resident's findings & plan, Exceptions are as noted - HPI HPI: 12/11/19 10:44 64 years old past medical history significant for hypothyroidism migraines sinus congestion presents to the ED with episodes of lightheadedness with change in position and slightly unsteady gait. Has had similar in the past diagnosed with labyrinthitis improved with meclizine symptoms have been intermittent over the last 4 days patient was concerned today Well-appearing no apparent distress symptoms are mild to moderate worse with change in position alleviated by rest - Physicial Exam PE: 12/11/19 10:45 Vitals: Triage Vital signs reviewed General Appearance: No acute distress, well nourished well developed, Head: Atraumatic, Eyes: Pupils equal reactive round, extraocular movement intact Ears: TM's normal bilaterally; Nose: Nares patent bilaterally; no nasal congestion, Sinus tenderness to palpation Throat: Posterior oropharynx without erythema, mucous membranes moist, Neck: Supple; no Nucal rigidity Chest Wall: Nontender Cardiac: Regular rate and rhythym, no murmurs, no rubs, no gallops, Lungs: Clear to auscultation bilateral, good air movement bilaterally, Abdomen: Soft, non distended, normal bowel sounds, non tender to palpation Extremities: Full range of motion to all extremities, no cyanosis, clubbing, or edema Skin: Warm and dry, no rashes or lesions, no rash, no petechiae Neuro: AOX3; cranial Nerves 2-12 grossly intact, strength intact to all extremities, sensation intact to all extremities, gait normal. Good tandem gait normal [id number] normal need to [place] Psych: Normal mood, normal affect - Medical Decision Making 12/11/19 13:20 64 years old with intermittent lightheadedness similar to previous episodes labyrinthitis given age and active tobacco a CAT scan was ordered which demonstrated no acute pathology status post meclizine and Afrin patient feels much better history and examination most consistent with sinusitis resulting in positional lightheadedness Will recommend Afrin [place] pot meclizine and close follow-up Normal neurologic exam patient asymptomatic upon discharge We will follow-up with your PCP or return to ED for any severe worsening symptoms or any concerns Findings, the need for follow-up and strict return instructions discussed with patient. Discharge - Discharge Information Problems reviewed: Yes Clinical Impression/Diagnosis: Lightheadedness Sinusitis Qualifiers: Sinusitis location: frontal Chronicity: acute Recurrence: non-recurrent Qualified Code(s): J01.10 - Acute frontal sinusitis, unspecified Condition: Stable Disposition: HOME - Admission No - Additional Discharge Information Prescriptions: Meclizine HCl 25 mg PO TID #14 tablet - Follow up/Referral Referrals: Brad Fung MD [Primary Care Provider] - - Patient Discharge Instructions Patient Printed Discharge Instructions: Sinusitis (Alternative Therapy) Additional Instructions: Meclizine as prescribed. [id number] Afrin x2 days as directed on package. Use a Karol pot 3-4 times a day. Drink plenty fluids. Follow-up with your doctor in 1 to 2 days. Return to the emergency department for any severe worsening symptoms or for any concerns. - Post Discharge Activity
== END 2019-12-11 11:25 | disposition home or self-care (01) ==
LOC: FER 09:00
DX: J01.10 Acute frontal sinusitis, unspecified (principal)
CPT/HCPCS: 70450-TC; 99284-25

== ENCOUNTER 2019-12-13 09:12 | Emergency (ER) | payer OTHER ==
--- NOTE | 2019-12-13 09:16 | PDOC ---
History of Present Illness - General Chief Complaint: Lightheaded Stated Complaint: DIZZY, INTERMITTENT "SINUS HEADACHE" Time Seen by Provider: 12/13/19 09:15 - History of Present Illness Initial Comments: 12/13/19 09:32 64 YOF h/o hypothyroidism and migraines presents for sinus headache like symptoms with some "internal head lightheadedness". She denies any vertigo or sensations of passing out but states that her head feels very lightheaded inside. She was seen here fro the same symptoms 2 days ago and was given afrin and meclizine with symptom relief. She states that since yesterday she has been feeling worse. She denies any fevers, cough, congestion, or any other concerning symptoms. On last visit 2 days ago she had a negative head CT. ROS GENERAL/CONSTITUTIONAL: No fever or chills. No weakness. HEAD, EYES, EARS, NOSE AND THROAT: No change in vision. No ear pain or discharge. No sore throat. CARDIOVASCULAR: No chest pain or shortness of breath RESPIRATORY: No cough, wheezing, or hemoptysis. GASTROINTESTINAL: No nausea, vomiting, diarrhea or constipation. GENITOURINARY: No dysuria, frequency, or change in urination. MUSCULOSKELETAL: No joint or muscle swelling or pain. No neck or back pain. SKIN: No rash NEUROLOGIC: + headache, No vertigo, loss of consciousness, or change in strength/sensation. ENDOCRINE: No increased thirst. No abnormal weight change HEMATOLOGIC/LYMPHATIC: No anemia, easy bleeding, or history of blood clots. ALLERGIC/IMMUNOLOGIC: No hives or skin allergy. PE GENERAL: Awake, alert, and fully oriented, in no acute distress HEAD: No signs of trauma, normocephalic, atraumatic EYES: PERRLA, EOMI, sclera anicteric, conjunctiva clear, no nystagmus ENT: oropharynx clear without exudates. Moist mucosa, TM bilat nonerythematous, nonbulging NECK: Normal ROM, supple LUNGS: No distress, speaks full sentences, clear to auscultation bilaterally HEART: Regular rate and rhythm, normal S1 and S2, no murmurs, rubs or gallops, peripheral pulses normal and equal bilaterally. ABDOMEN: Soft, nontender. No guarding, no rebound. No masses EXTREMITIES : Normal inspection, Normal range of motion, no edema. No clubbing or cyanosis. NEUROLOGICAL: Cranial nerves II through XII grossly intact. Normal speech, normal gait, no focal sensorimotor deficits SKIN: Warm, Dry, normal turgor, no rashes or lesions noted Assessment and Plan 64 YOF h/o hypothyroidism and migraines presents for sinus headache like symptoms with some "internal head lightheadedness". She denies any vertigo or sensations of passing out but states that her head feels very lightheaded inside. Patient with sinus headache, advise patient to continue the course of treatment and seek Primary Physician care if symptoms persist. Katya Colon, PGY3 Emergency Medicine Past History - Medical History Allergies/Adverse Reactions: Allergies Allergy/AdvReac Type Severity Reaction Status Date / Time cephalexin [From Keflex] AdvReac nightmares Verified 12/13/19 09:15 Home Medications: Ambulatory Orders Levothyroxine Sodium [Levoxyl] 150 mcg PO DAILY 05/28/17 Lorazepam [Ativan] 0.5 mg PO BID 05/28/17 Albuterol Sulfate Inhaler - [Ventolin Hfa Inhaler -] 1 puff IH Q4H PRN 12/11/19 Meclizine HCl 25 mg PO TID #14 tablet 12/11/19 D-Methorphan/PE/Acetaminophen [Mucinex Fast-Max Congest-Head] 1 each PO BID 7 Days #14 capsule 12/13/19 Oxymetazoline 0.05% Nasal Soln [Afrin -] 1 spray NS ASDIR 12/13/19 COPD: No Psychiatric Problems: Yes (anxiety) Thyroid Disease: Yes (Hypothyroid) - Psycho-Social/Smoking History Smoking History: Current every day smoker Have you smoked in the past 12 months: Yes Number of Cigarettes Smoked Daily: 10 'Breaking Loose' booklet given: 09/24/18 Discharge - Discharge Information Problems reviewed: Yes Clinical Impression/Diagnosis: Headache Condition: Stable - Follow up/Referral Referrals: Brad Fung MD [Primary Care Provider] - - Patient Discharge Instructions Patient Printed Discharge Instructions: Sinus Headache, DI for Sinus Headache Additional Instructions: You were seen in the ER for symptoms of a sinus headache You were evaluated in the ER if with a normal exam. In your past visit, 2 days ago, you had a negative head CT. You should continue the Afrin and Meclizine course of medications that was prescribed to you. You were prescribed a decongestant which should be taken as prescribed. If your symptoms persist beyond 10-14 days you should see your Primary Care Physician. If you develop any worsening symptoms such as ear pain or discharge, fevers, cough, congestion, sudden dizziness, loss of consciousness or inability to be steady on your feet please return to the ER or see your Primary Care Physician. - Post Discharge Activity
[2019-12-13 09:18] VITALS: BP 144/83; PULSE 96; TEMP 98.3; BMI 29.7
[2019-12-13] MEDS ORDERED: IBUPROFEN 400 MG TABLET (FP) PO ONE ×2 (09:43→10:09)
--- NOTE | 2019-12-13 10:13 | PDOC ---
Attending Attestation - Resident Resident Name: IsaiahKatya - ED Attending Attestation I have performed the following: I have examined & evaluated the patient, The case was reviewed & discussed with the resident, I agree w/resident's findings & plan, Exceptions are as noted - HPI HPI: 12/13/19 10:07 64 yo F p/w nasal congestion, head pressure and sensation of internal "dizziness" x1 week. Was seen for same 2 days prior, head CT negative at that time and d/jackelyn with meclizine and affrin. Has been using with some relief however still feels nasal congestion and sinus pressure. Denies sensation of room spinning or feeling off balance or lightheadedness. No fevers. No chest pain or SOB. No changes in vision. - Physicial Exam PE: 12/13/19 10:09 General: well appearing HEENT: EOMI, no nystagmus, b/l TMs wnl Neck: supple, FROM Neuro: Aox3, speech fluent, face symmetric, finger to nose intact and symmetric b/l, gait steady, negative rhomberg, no drift, no focal deficits - Medical Decision Making 12/13/19 10:13 64 yo F with nasal congestion and feeling of "internal dizziness" likely viral syndrome/sinusitis. Would not treat with abx at this time given symptoms <10 days. No focal deficits on exam and CT head negative 2 days prior. Plan: -motrin -COVID swab -d/c with return precautions, recommend supportive care at home and PMD f/u, also instructed to quarantine until COVID results return This clinical encounter is taking place during a federal and state health care emergency attributable to the novel Adame Virus pandemic. The Press Supervisor of the Department of Health and Human Services has declared, pursuant to the Public Health Service Act 319F-3 (42 U.S.C. 247d-6d), that a covered persons activities related to medical countermeasures against COVID-19 will be immune from liability under Federal and State law. Discharge - Discharge Information Problems reviewed: Yes Clinical Impression/Diagnosis: Headache Condition: Stable - Follow up/Referral Referrals: Brad Fung MD [Primary Care Provider] - - Patient Discharge Instructions Patient Printed Discharge Instructions: Sinus Headache, DI for Sinus Headache Additional Instructions: You were seen in the ER for symptoms of a sinus headache You were evaluated in the ER if with a normal exam. In your past visit, 2 days ago, you had a negative head CT. You should continue the Afrin and Meclizine course of medications that was prescribed to you. If your symptoms persist beyond 10-14 days you should see your Primary Care Physician. If you develop any worsening symptoms such as ear pain or discharge, fevers, cough, congestion, sudden dizziness, loss of consciousness or inability to be steady on your feet please return to the ER or see your Primary Care Physician. - Post Discharge Activity
== END 2019-12-13 10:20 | disposition home or self-care (01) ==
LOC: FER 09:12
DX: R51 Headache (principal)
CPT/HCPCS: 99283-25; U0003

== ENCOUNTER 2020-03-26 15:01 | Emergency (ER) | payer OTHER ==
[2020-03-26 15:28] VITALS: BP 149/71; PULSE 92; TEMP 98.7; BMI 31.3
[2020-03-26 16:25] LABS: EPITHELIAL CELLS FEW /hpf
[2020-03-26 16:36] LABS: HEMOGLOBIN 12.3 GM/dl (10.7-15.3); RBC 4.05 M/mm3 (3.60-5.2)
[2020-03-26] MEDS ORDERED: KETOROLAC TROMETHAMINE 30 MG/1 ML VIAL IVPUSH ONE (16:37)
[2020-03-26 16:38] LABS: BASO % 3.6 % (0-2.0); EOS % 0.8 % (0-4.5); HEMATOCRIT 37.4 % (32.4-45.2); LYMPH % 19.9 % (8-40); MCH 30.3 pg (25.7-33.7); MCHC 32.9 g/dl (32.0-36.0); MEAN CELL VOLUME 92.2 fl (80-96); MEAN PLT VOLUME 6.9 fl (7.5-11.1); MONO % 5.3 % (3.8-10.2); NEUT % 70.4 % (42.8-82.8); PLATELET COUNT 325 K/MM3 (134-434); RDW 13.3 % (11.6-15.6); WHITE BLOOD COUNT 10.3 K/mm3 (4.0-10.8)
[2020-03-26] MEDS ORDERED: KETOROLAC TROMETHAMINE 30 MG/1 ML VIAL ONE (16:38)
[2020-03-26 16:47] LABS: ALBUMIN 4.1 g/dl (3.4-5.0); BILIRUBIN,TOTAL 0.4 mg/dl (0.2-1); CALCIUM 8.8 mg/dl (8.5-10); CREATININE 1.1 mg/dl (0.55-1.3); POTASSIUM 4.2 mmol/L (3.5-5.1); TOT PROT 7.6 g/dl (6.4-8.2)
[2020-03-26] MEDS ORDERED: metroNIDAZOLE 500 MG TABLET PO ONE (19:26)
[2020-03-26] MEDS ORDERED: metroNIDAZOLE 250 MG TABLET ONE (19:28)
== END 2020-03-26 19:39 | disposition home or self-care (01) ==
LOC: FER 15:01
DX: K57.92 Diverticulitis of intestine, part unspecified, without perforation or abscess without bleeding (principal)
CPT/HCPCS: 36415; 74176-TC; 80053; 81003; 81015; 83690; 85025; 87086; 99285-25

== ENCOUNTER 2020-05-23 09:39 | Emergency (ER) | payer OTHER ==
[2020-05-23 09:59] VITALS: BP 144/68; PULSE 71; TEMP 98.3; BMI 29.9
[2020-05-23] MEDS ORDERED: LIDOCAINE 5% TOPICAL PATCH TP ONE (10:05)
[2020-05-23] MEDS ORDERED: IBUPROFEN 600 MG TABLET (FP) PO ONE ×2 (10:05→10:15)
[2020-05-23] MEDS ORDERED: LIDOCAINE 5% TOPICAL PATCH ONE (10:15)
[2020-05-23] MEDS ORDERED: LIDOCAINE PATCH REMOVAL MC SCH (22:00)
== END 2020-05-23 11:33 | disposition home or self-care (01) ==
LOC: FER 09:39
DX: S40.011A Contusion of right shoulder, initial encounter (principal); S70.01XA Contusion of right hip, initial encounter; W01.0XXA Fall on same level from slipping, tripping and stumbling without subsequent striking against object, initial encounter
CPT/HCPCS: 73030-TC-RT-FY; 73523-TC-FY; 99284-25

== ENCOUNTER 2020-05-25 10:19 | Emergency (ER) | payer OTHER ==
[2020-05-25 10:26] VITALS: BP 153/74; PULSE 85; TEMP 97.9; BMI 28.1
[2020-05-25] MEDS ORDERED: ACETAMINOPHEN 325 MG TABLET (FP) PO ONE (10:39)
[2020-05-25] MEDS ORDERED: ACETAMINOPHEN 325 MG TABLET (FP) ONE (10:41)
== END 2020-05-25 11:40 | disposition home or self-care (01) ==
LOC: FER 10:19
DX: R51.9 Headache, unspecified (principal)
CPT/HCPCS: 70450-TC; 99284-25

== ENCOUNTER 2020-06-02 11:40 | Emergency (ER) | payer OTHER ==
[2020-06-02 11:53] VITALS: BP 134/78; PULSE 73; TEMP 98.9; BMI 28.1
[2020-06-02] MEDS ORDERED: ACETAMINOPHEN 325 MG TABLET (FP) PO ONE (12:39)
[2020-06-02 12:42] LABS: EPITHELIAL CELLS FEW /hpf
[2020-06-02 12:56] LABS: BASO % 1.4 % (0-2.0); EOS % 1.6 % (0-4.5); HEMATOCRIT 39.1 % (32.4-45.2); LYMPH % 35.3 % (8-40); MCH 30.1 pg (25.7-33.7); MCHC 33.3 g/dl (32.0-36.0); MEAN CELL VOLUME 90.6 fl (80-96); MEAN PLT VOLUME 7.3 fl (7.5-11.1); MONO % 4.3 % (3.8-10.2); NEUT % 57.4 % (42.8-82.8); PLATELET COUNT 306 K/MM3 (134-434); RBC 4.31 M/mm3 (3.60-5.2); RDW 11.5 % (11.6-15.6); WHITE BLOOD COUNT 6.7 K/mm3 (4.0-10.8)
[2020-06-02 13:03] LABS: BILIRUBIN,TOTAL 0.5 mg/dl (0.2-1); CALCIUM 8.5 mg/dl (8.5-10); CREATININE 1.2 mg/dl (0.55-1.3); POTASSIUM 4.1 mmol/L (3.5-5.1); TOT PROT 6.7 g/dl (6.4-8.2)
[2020-06-02] MEDS ORDERED: ACETAMINOPHEN 325 MG TABLET (FP) ONE (13:04)
== END 2020-06-02 14:35 | disposition home or self-care (01) ==
LOC: FER 11:40
DX: R10.30 Lower abdominal pain, unspecified (principal); R16.0 Hepatomegaly, not elsewhere classified
CPT/HCPCS: 36415; 72100-TC-FY; 74177-TC; 80053; 81003; 81015; 82550; 84484; 85025; 87086; 99285-25

== ENCOUNTER 2020-10-11 23:54 | Emergency (ER) | payer OTHER ==
[2020-10-12] MEDS ORDERED: ACETAMINOPHEN 1000 MG/100 ML VIAL (NON FORMULARY) IVPB ONE (00:27)
[2020-10-12] MEDS ORDERED: ONDANSETRON 4 MG/2 ML VIAL IVPUSH ONE (00:27)
[2020-10-12] MEDS ORDERED: LACTATED RINGERS SOLUTION 1000 ML INFUS.BAG IV ONE (00:27)
[2020-10-12] MEDS ORDERED: FAMOTIDINE 20 MG/50 ML IVPB 20 MG/50 ML MG IVPB ONE ×2 (00:27→01:34)
[2020-10-12] MEDS ORDERED: ONDANSETRON 4 MG/2 ML VIAL ONE (00:40)
[2020-10-12] MEDS ORDERED: ACETAMINOPHEN INJECTION 100 ML IVPB ONE (00:40)
[2020-10-12 00:47] LABS: BASO % 0.8 % (0-2.0); EOS % 0.5 % (0-4.5); HEMATOCRIT 39.1 % (32.4-45.2); HEMOGLOBIN 13.2 GM/dL (10.7-15.3); MCH 29.8 pg (25.7-33.7); MCHC 33.8 g/dl (32.0-36.0); MEAN PLT VOLUME 6.3 fl (7.5-11.1); MONO % 6.1 % (3.8-10.2); NEUT % 82.6 % (42.8-82.8); PLATELET COUNT 288 10^3/uL (134-434); RBC 4.45 M/mm3 (3.60-5.2); WHITE BLOOD COUNT 14.8 K/mm3 (4.0-10.0)
[2020-10-12 01:13] LABS: CHLORIDE 108 mmol/L (98-107); SODIUM 143 mmol/L (136-145)
[2020-10-12 01:15] VITALS: BP 130/65; PULSE 92; TEMP 98.5; BMI 31.3
[2020-10-12 01:15] LABS: CALCIUM 8.4 mg/dL (8.5-10.1)
[2020-10-12 01:16] LABS: ALBUMIN 3.7 g/dl (3.4-5.0); ANION GAP 7 MMOL/L (8-16); BLOOD UREA NITROGEN 23.1 mg/dL (7-18); CO2 28 mmol/L (21-32); GLUCOSE,RANDOM 110 mg/dL (74-106); LIPASE 47 U/L (73-393); MAGNESIUM 1.8 mg/dL (1.8-2.4)
[2020-10-12 01:19] LABS: CREATININE 0.9 mg/dL (0.55-1.3); SGOT/AST 14 U/L (15-37); SGPT/ALT 26 U/L (13-61)
[2020-10-12 01:20] LABS: BILIRUBIN,TOTAL 0.3 mg/dL (0.2-1); TOT PROT 6.9 g/dl (6.4-8.2)
[2020-10-12 01:21] LABS: ALK PHOS 92 U/L (45-117)
[2020-10-12 02:09] LABS: EPI CELLS 4 /uL (0-25.1); HYALINE CASTS 1 /uL (0-3.1); PH,URINE 5.5 (5.0-8.0); URINE APPEARANCE CLEAR; URINE BACTERIA 35 /uL (0-1359); URINE BILIRUBIN NEGATIVE (NEGATIVE); URINE COLOR YELLOW; URINE GLUCOSE (UA) NEGATIVE (NEGATIVE); URINE KETONE NEGATIVE (NEGATIVE); URINE LEUK ESTERASE NEGATIVE (NEGATIVE); URINE NITRITE NEGATIVE (NEGATIVE); URINE PROTEIN NEGATIVE (NEGATIVE); URINE RBC 10 /uL (0-23.9); URINE UROBILINOGEN 0.2 mg/dL (0.2-1.0); URINE WBC 4 /uL (0-25.8)
== END 2020-10-12 04:25 | disposition home or self-care (01) ==
LOC: JER 23:54
PROC: 3E0333Z Introduction of Anti-inflammatory into Peripheral Vein, Percutaneous Approach (ICD-10-PCS; principal; 2020-10-11)
PROC: 3E033GC Introduction of Other Therapeutic Substance into Peripheral Vein, Percutaneous Approach (ICD-10-PCS; 2020-10-11)
PROC: 3E033GC Introduction of Other Therapeutic Substance into Peripheral Vein, Percutaneous Approach (ICD-10-PCS; 2020-10-11)
DX: R10.10 Upper abdominal pain, unspecified (principal)
CPT/HCPCS: 36415; 71045-TC-FY; 74177-TC; 76705-TC; 80053; 81003; 82550; 83605; 83690; 83735; 84484; 85025; 93005; 93010; 99285-25; J0131

== ENCOUNTER 2021-03-22 11:47 | Emergency (ER) | payer OTHER ==
[2021-03-22] MEDS ORDERED: SODIUM CHLORIDE 0.9% 500 ML INFUS.BAG IV ONE (12:10)
[2021-03-22 12:21] VITALS: BP 130/74; PULSE 78; TEMP 98.1; BMI 28.1
[2021-03-22 13:04] LABS: EPITHELIAL CELLS MODERATE /hpf
[2021-03-22 13:19] LABS: ACTIVATED PTT 30.9 SECONDS (25.2-36.5)
[2021-03-22 13:23] LABS: INR 1.17 (0.83-1.09)
[2021-03-22 13:40] LABS: BILIRUBIN,TOTAL 0.3 mg/dl (0.2-1); CALCIUM 8.9 mg/dl (8.5-10); CREATININE 0.9 mg/dl (0.55-1.3)
[2021-03-22 14:01] LABS: BASO % 0.8 % (0-2.0); EOS % 0.7 % (0-4.5); HEMATOCRIT 38.1 % (32.4-45.2); LYMPH % 33.9 % (8-40); MCHC 34.1 g/dl (32.0-36.0); MEAN CELL VOLUME 90.7 fl (80-96); MEAN PLT VOLUME 6.6 fl (7.5-11.1); MONO % 5.3 % (3.8-10.2); NEUT % 59.3 % (42.8-82.8); PLATELET COUNT 297 10^3/uL (134-434); RDW 12.8 % (11.6-15.6); WHITE BLOOD COUNT 7.2 K/mm3 (4.0-10.0)
[2021-03-22] MEDS ORDERED: SODIUM CHLORIDE 500 ML IV STA (15:34)
== END 2021-03-22 16:20 | disposition home or self-care (01) ==
LOC: FER 11:47
PROC: 3E0337Z Introduction of Electrolytic and Water Balance Substance into Peripheral Vein, Percutaneous Approach (ICD-10-PCS; principal; 2021-03-22)
DX: K57.90 Diverticulosis of intestine, part unspecified, without perforation or abscess without bleeding (principal); R10.84 Generalized abdominal pain
CPT/HCPCS: 36415; 74177-TC; 80053; 81003; 81015; 85025; 85610; 85730; 87086; 99285-25

== ENCOUNTER 2021-06-13 07:54 | Day surgery (SDC) | payer MEDICARE, OTHER ==
[2021-06-08 10:52] VITALS: BMI 29.7
[2021-06-13] MEDS: CYCLOPENTOLATE 2% OPHTH SOLN 2 ML BOTTLE ONE ×3 (08:20→08:30)
[2021-06-13] MEDS: PHENYLEPHRINE 2.5% OPHTH SOLN 15 ML BOTTLE ONE ×3 (08:20→08:30)
[2021-06-13] MEDS: TROPICAMIDE 1% OPHTH SOLN 15 ML BOTTLE ONE ×3 (08:20→08:30)
[2021-06-13] MEDS: CIPROFLOXACIN 0.3% EYE DROPS 5 ML BOTTLE ONE ×3 (08:20→08:30)
[2021-06-13 08:34] VITALS: TEMP 98.4
[2021-06-13] MEDS ORDERED: MIDAZOLAM HCL 2 MG/2 ML SINGLE DOSE VIAL ONE ×2 (09:50→09:56)
[2021-06-13 11:15] VITALS: BP 125/65; PULSE 79
== END 2021-06-13 12:35 | disposition home or self-care (01) ==
LOC: FASU 07:54
PROVIDERS: ATTEND Ophthalmology
PROC: 08RJ3JZ Replacement of Right Lens with Synthetic Substitute, Percutaneous Approach (ICD-10-PCS; principal; 2021-06-13 09:56)
DX: H26.8 Other specified cataract (principal)

== ENCOUNTER 2022-01-08 10:24 | Emergency (ER) | payer OTHER ==
[2022-01-08 11:01] VITALS: BP 153/78; PULSE 87; RESP 16; TEMP 98.7; BMI 29.7
[2022-01-08] MEDS ORDERED: LIDOCAINE 5% TOPICAL PATCH TP ONE (11:20)
[2022-01-08] MEDS ORDERED: IBUPROFEN 600 MG TABLET (FP) PO ONE ×2 (11:20→11:23)
[2022-01-08] MEDS ORDERED: LIDOCAINE 5% TOPICAL PATCH ONE (11:24)
[2022-01-08 11:55] LABS: EPITHELIAL CELLS FEW /hpf
[2022-01-08 16:12] LABS: THROAT:GRP A STREP NOT DETECTED (NOTDETECTED)
[2022-01-08] MEDS ORDERED: LIDOCAINE PATCH REMOVAL MC SCH (22:00)
== END 2022-01-08 12:26 | disposition home or self-care (01) ==
LOC: FER 10:24
DX: M54.50 Low back pain, unspecified (principal)
CPT/HCPCS: 0241U-QW; 81003; 81015; 87651; 99283-25

== ENCOUNTER 2022-02-15 12:47 | Emergency (ER) | payer MEDICARE ==
[2022-02-15] MEDS ORDERED: ACETAMINOPHEN 500 MG TABLET (FP) PO ONE (12:53)
[2022-02-15 13:01] VITALS: BP 139/70; PULSE 71; RESP 18; TEMP 98.1; BMI 28.1
[2022-02-15] MEDS ORDERED: ACETAMINOPHEN 325 MG TABLET (FP) ONE (13:01)
[2022-02-15] MEDS ORDERED: KETOROLAC TROMETHAMINE 30 MG/1 ML VIAL IM ONE (13:47)
[2022-02-15] MEDS ORDERED: KETOROLAC TROMETHAMINE 30 MG/1 ML VIAL ONE (13:48)
== END 2022-02-15 18:30 | disposition home or self-care (01) ==
LOC: FER 12:47
PROC: 3E0233Z Introduction of Anti-inflammatory into Muscle, Percutaneous Approach (ICD-10-PCS; principal; 2022-02-15)
DX: M71.21 Synovial cyst of popliteal space [Baker], right knee (principal)
CPT/HCPCS: 73564-TC-RT-FY; 93971-TC; 99284-25

== ENCOUNTER 2022-11-21 08:49 | Emergency (ER) | payer MEDICARE, OTHER ==
[2022-11-21 09:04] VITALS: BP 139/80; PULSE 82; RESP 16; TEMP 97.9; BMI 29.7
[2022-11-21] MEDS ORDERED: LACTATED RINGERS SOLUTION 1000 ML INFUS.BAG IV ONE (09:06)
[2022-11-21] MEDS ORDERED: ACETAMINOPHEN 1000 MG/100 ML BAG IVPB ONE (09:08)
[2022-11-21] MEDS ORDERED: ACETAMINOPHEN INJECTION 100 ML IVPB ONE (09:11)
[2022-11-21 09:42] LABS: HEMATOCRIT 40.7 % (32.4-45.2); HEMOGLOBIN 13.8 G/dL (10.7-15.3); MCH 30.3 pg (25.7-33.7); MCHC 33.8 g/dl (32.0-36.0); MEAN CELL VOLUME 89.6 fl (80-96); MEAN PLT VOLUME 6.6 fl (7.5-11.1); PLATELET COUNT 254.2 10^3/uL (134-434); RBC 4.54 10^6/uL (3.60-5.2); RDW 13.4 % (11.6-15.6); WHITE BLOOD COUNT 10.2 10^3/uL (4.0-10.8)
[2022-11-21 09:46] LABS: PLATELET ESTIMATE ADEQUATE
[2022-11-21 09:48] LABS: EPITHELIAL CELLS RARE /hpf
[2022-11-21 09:51] LABS: ALBUMIN 4.1 g/dl (3.4-5.0); BLOOD UREA NITROGEN 22.2 mg/dl (7-18); CALCIUM 9.2 mg/dl (8.5-10.1); POTASSIUM 4.3 mmol/L (3.5-5.1); SGOT/AST 17.2 U/L (15-37); SGPT/ALT 22.5 U/L (7-52); TOT PROT 6.7 g/dl (6.4-8.2)
[2022-11-21] MEDS ORDERED: metroNIDAZOLE 250 MG TABLET PO ONE (11:30)
[2022-11-21] MEDS ORDERED: CIPROFLOXACIN 500 MG TABLET (RESTRICTED TO ID) PO ONE (11:30)
[2022-11-21] MEDS ORDERED: metroNIDAZOLE 250 MG TABLET ONE (11:42)
[2022-11-21] MEDS ORDERED: CIPROFLOXACIN 250 MG TABLET (RESTRICTED TO ID) PO ONE (11:42)
[2022-11-21 15:23] LABS: BILIRUBIN,TOTAL 0.2 mg/dL (0.2-1)
== END 2022-11-21 11:58 | disposition home or self-care (01) ==
LOC: FER 08:49
PROC: 3E033NZ Introduction of Analgesics, Hypnotics, Sedatives into Peripheral Vein, Percutaneous Approach (ICD-10-PCS; principal; 2022-11-21)
DX: R10.32 Left lower quadrant pain (principal); K92.1 Melena
CPT/HCPCS: 36415; 74177-TC; 80053; 81003; 81015; 85027; 87086; 99285-25; Q9967